=== PATIENT | male | born 1985 | race Caucasian/White ===

== ENCOUNTER 2017-06-04 16:23 | Emergency (ER) | payer SELFPAY ==
--- NOTE | 2017-06-04 16:31 | PDOC ---
Rapid Medical Evaluation Time Seen by Provider: 06/04/17 16:28 Medical Evaluation: 06/04/17 16:29 I have performed a brief in-person evaluation of this patient. 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 Discharge Disposition - Diagnosis Left-sided back pain - Referrals - Patient Instructions - Post Discharge Activity
[2017-06-04 16:32] VITALS: BP 140/89; PULSE 70; TEMP 97.5; BMI 32.3
[2017-06-04 18:01] LABS: URINE APPEARANCE CLEAR; URINE BILIRUBIN NEGATIVE (NEGATIVE); URINE BLOOD NEGATIVE (NEGATIVE); URINE COLOR YELLOW; URINE GLUCOSE (UA) NEGATIVE (NEGATIVE); URINE KETONE NEGATIVE (NEGATIVE); URINE LEUK ESTERASE NEGATIVE (NEGATIVE); URINE NITRITE NEGATIVE (NEGATIVE); URINE PROTEIN NEGATIVE (NEGATIVE); URINE UROBILINOGEN NEGATIVE mg/dL (0.2-1.0)
[2017-06-04] MEDS ORDERED: NAPROXEN 500 MG TABLET (FP) PO ONE (19:11)
--- NOTE | 2017-06-04 19:15 | PDOC ---
History of Present Illness - General Chief Complaint: Back Pain Stated Complaint: PAIN Time Seen by Provider: 06/04/17 16:28 History Source: Patient Exam Limitations: No Limitations - History of Present Illness Initial Comments: 06/04/17 19:11 CHIEF COMPLAINT: [Lower back pain] HISTORY OF PRESENT ILLNESS:[ 31]-year-old [male],[ presents with left lateral lower back pain , patient reports pain is only with range of motion, denies any pain on inspiration was concerned it may be his kidney however there is no urinary symptoms, no blood in urine. 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 Nonradiating pain, no neurosensory deficits, no bowel or bladder difficulty incontinence or urinary retention, no saddle anesthesia, no footdrop. No history of IVDU or history of cancer. ] REVIEW OF SYSTEMS: GENERAL: Afebrile, denies any weakness RESPIRATORY: No cough, wheezing, or hemoptysis. CARDIAC: No chest pain or shortness of breath MUSCULOSKELETAL: Pain to left lateral lower back, reproducible SKIN : No erythema, no bruising, no deformity. GI/: Denies any abdominal pain, no urinary difficulty, incontinence or urinary retention. RECTAL: Denies any difficulty this A.m. NEUROLOGICAL: Denies any numbness or tingling. No neurosensory deficits. PHYSICAL EXAM: GENERAL: The patient is awake, alert, and fully oriented, in no acute distress. RESPIRATORY: Lungs clear bilaterally, no rhonchi wheezes or crackles CARDIAC: S1-S2 audible, no murmur rub or gallop MUSCULOSKELETAL: Pain to left lateral lower back nonradiating, no tingling or sensory deficit. Less than 2 second cap refill, +4 popliteal and pedal pulses. GI/: Abdomen soft, nontender, nondistended. No rebound tenderness. No masses palpable. MUSCULOSKELETAL: No spinal point tenderness. Normal reflexive and no deficits to sensation or strength. RECTAL: [Deferred patient with no neurological findings SKIN: Warm, Dry, normal turgor, no erythema, no edema no bruising. Past History - Past Medical History Allergies/Adverse Reactions: Allergies Allergy/AdvReac Type Severity Reaction Status Date / Time No Known Allergies Allergy Verified 06/04/17 16:29 Home Medications: Ambulatory Orders Naproxen [Naprosyn] 500 mg PO BID #20 tablet 06/04/17 COPD: No DVT: No - Suicide/Smoking/Psychosocial Hx Smoking History: Never smoked Have you smoked in the past 12 months: No Information on smoking cessation initiated: No Hx Alcohol Use: No Drug/Substance Use Hx: No Substance Use Type: None *Physical Exam - Vital Signs Last Vital Signs Temp Pulse Resp BP Pulse Ox 97.5 F L 70 18 140/89 100 06/04/17 16:30 06/04/17 16:30 06/04/17 16:30 06/04/17 16:30 06/04/17 16:30 ED Treatment Course - ADDITIONAL ORDERS Additional order review: Laboratory Results 06/04/17 17:42 Urine Color Yellow Urine Appearance Clear Urine pH 6.0 Ur Specific [place] 1.021 Urine Protein Negative Urine Glucose (UA) Negative Urine Ketones Negative Urine Blood Negative Urine Nitrite Negative Urine Bilirubin Negative Urine Urobilinogen Negative Ur Leukocyte Esterase Negative Medical Decision Making - Medical Decision Making 06/04/17 19:14 day A/P: Patient with reproducible left lateral lower back pain. Urinalysis is unremarkable, no evidence of blood or infection. Pain is reproducible most likely musculoskeletal in nature patient has not attempted to take any medication for pain I will give Naprosyn while in emergency department. Patient with no rash and no CVA tenderness. 06/04/17 20:37 No pain after medication. Will DC home Naprosyn for pain Follow up with PMD if pain *DC/Admit/Observation/Transfer Diagnosis at time of Disposition: Left-sided back pain Qualifiers: Back pain location: low back pain Chronicity: acute Sciatica presence: without sciatica Qualified Code(s): M54.5 - Low back pain - Discharge Dispostion Disposition: HOME Condition at time of disposition: Stable Admit: No - Prescriptions Prescriptions: Naproxen [Naprosyn] 500 mg PO BID #20 tablet - Referrals Referrals: Esequiel Nick MD [Staff Physician] - - Patient Instructions Additional Instructions: 1. Please return to the emergency department with any numbness, tingling, weakness, numbness or tingling to groin or legs, or loss of bowel or bladder function. 2. Use pain medication as ordered. 3. Please is to followup in the office of Dr. Nick for evaluation within a week if no improvement. 4. Ice or heat 5. Refrain from lifting anything above 10 pounds, until pain resolved. - Post Discharge Activity Forms/Work/School Notes: Back to Work
[2017-06-04] MEDS ORDERED: NAPROXEN 500 MG TABLET (FP) ONE (19:24)
== END 2017-06-04 20:46 | disposition home or self-care (01) ==
LOC: JERFT 16:23
DX: M54.5 Low back pain (principal)
CPT/HCPCS: 81003; 87086; 99281-25